=== PATIENT | female | born 1960 | race Two or more races ===

== ENCOUNTER → 2020-07-06 | Outpatient (CLI) | payer OTHER ==
[2015-02-06 20:02] VITALS: BP 177/87
--- NOTE | 2020-07-07 06:44 | RAD ---
Study: US HEAD/NECK SOFT TISSUE Indication: Right-sided neck mass. Comparison: None. Technique/Findings: Limited grayscale and color Doppler sonographic assessment of the region of palpable concern at the r ight submandibular region. No fluid collection or mass at the region of concern. Several morphologically benign lymph nodes are seen at the submandibular location with maintained fatty yared and sub-3 mm cortices. Impression: No concerning sonographic abnormality at the right submandibular region in the setting of reported ma ss. Several lymph nodes are identified but exhibit benign morphology. Ultrasound follow-up could be p erformed if there is any relevant change clinically but is not indicated based off this exam alone. Electronically signed by: NAY RAMIREZ MD (07/07/2020 6:42 AM) [email or web address]
== END ==
LOC: US 16:07
DX: R22.1 Localized swelling, mass and lump, neck (principal)
CPT/HCPCS: 76536